=== PATIENT | male | born 1975 | race Caucasian/White ===

== ENCOUNTER → 2016-10-05 | Day surgery (SDC) | payer BC ==
[~2016-10-05] MED LIST: ASPIRIN PO; ASPIRIN81 M1 PO; ASPIRINEC PO; AUGMENTIN; COUMADIN PO; DICLOFENAC PO; FLEXERIL10 MG PO; LIPITOR PO; LORTAB 7.5-5001 TAB PO; NIASPAN PO; NO MEDICATIONS; PLAVIX PO; PRILOSEC PO; TYLENOL325 M1; UNK CHOLESTEROL MED; VOLTAREN75 MG PO; ZITHROMAX PO
--- NOTE | ~2016-10-05 | OR ---
Unit #: [id number] #: [id number] Patient: QUE JIMÉNEZ [id number] [address] [place], [place] [address] [id number] O MR#: [id number] NAME: QUE JIMÉNEZ ROOM: Date of Procedure: 10/05/2016 Admission Date: 10/05/2016 Surgeon: Patrick Dominguez Jr., M.D. : 1975 Attending Physician: Patrick Dominguez Jr., M.D. Primary Care Physician: Primary Care Physician No OPERATIVE REPORT INDICATIONS FOR PROCEDURE The patient is a 40-year-old white male, recently presented to the office after being treated for what was suspected to be some diverticulitis. He was treated at home with oral antibiotics and did improve, but it was felt in view of the fact that his CAT scan showed no obvious diverticulitis that he should have a colonoscopy to rule out colitis or other sources of his pain in the left lower quadrant. He is brought in this time after prep at home for colonoscopy. He understands the procedure including the risks, including that of perforation, and bleeding, and consents. He has had no previous colonoscopy. PREOPERATIVE DIAGNOSES Possible colitis, possible diverticulitis. POSTOPERATIVE DIAGNOSES No evidence of colitis or diverticulitis, but 2 polyps of the transverse colon and 1 of the descending colon. All 3 polyps were approximately 4 to 5 mm in diameter. They all appeared benign. ANESTHESIA MAC anesthesia. PROCEDURE PERFORMED Flexible colonoscopy to the cecum with snare polypectomy x3 of the polyps described above. DESCRIPTION OF PROCEDURE The patient was positioned in Dorman position with left side down. After being given MAC anesthesia, digital rectal examination was performed, which revealed a thrombosed external hemorrhoid at approximately 5 o'clock in supine position. No masses, no tenderness, no blood or stool in the rectal ampulla. Prostate was normal by palpation. The Olympus colonoscope was advanced through the anal canal up the rectum and retroflexed down to the area of the anorectal region. There were small internal hemorrhoids felt to be of no major significance. The scope was then straightened and advanced up in the rectosigmoid, in the sigmoid and descending colon areas and in the descending colon, there was a small 3 to 4 mm polyp, which was snared at its base and suctioned up against the scope and brought out with the scope and sent to pathology. The scope was then replaced back to the area of the area in the base was well coagulated. There was no evidence of any extensive burn. No evidence of any bleeding and no evidence of any perforation. The scope was then Unit #: [id number] #: [id number] Patient: QUE JIMÉENZ advanced around the splenic flexure, in the transverse colon, where there were 2 similar polyps, 3 to 5 mm in diameter. These were both snared and one suctioned out through the suction port and the other one brought out with the scope with the suction technique. All 3 polyps were sent to pathology. The scope was then advanced up in the transverse colon around the hepatic flexure and ascending colon down in the area of the cecum. The light from the tip of the scope could be seen transilluminating through right lower quadrant abdominal wall area. Multiple attempts in advancing the scope up the distal ileum were unsuccessful. There was particulate matter in the cecum, but no abnormalities obvious. The scope was then slowly removed. There were no tumors except for the 3 polyps as described above. No other polyps, no cancer, no AVMs. No evidence of any colitis or acute diverticulitis. The caliber of the colon appeared normal throughout. The scope was removed. The patient tolerated the procedure well and discharged in satisfactory condition. Dictated by... Patrick Dominguez Jr. MTrish HERNÁNDEZ/job TD: 10/06/2016 01:21 JOB #: [id number] OPERATIVE REPORT X Patrick Dominguez MD X PROCEDURE OPERATIVE NOTE
== END | disposition home or self-care (01) ==
LOC: COPS 13:13
DX: D12.3 Benign neoplasm of transverse colon (principal); D12.4 Benign neoplasm of descending colon; K64.8 Other hemorrhoids; Z86.73 Personal history of transient ischemic attack (TIA), and cerebral infarction without residual deficits; Z98.890 Other specified postprocedural states
CPT/HCPCS: 88305; J2250